=== PATIENT | female | born 1960 | race Caucasian/White ===

== ENCOUNTER → 2016-07-01 | Outpatient (CLI) | payer BC ==
[~2016-07-01] MED LIST: BYSTOLIC5 MG PO; EFFEXOR XR DPS150 MG PO; HABITROL DPS14 MG PO; HYZAAR-100/251 TAB PO; NORCO 5-325 TA1 EACH PO; NORVASC5 MG PO; TYLENOL DPS325 MG PO; ULTRAM DPS50 MG PO; ZOCOR DPS20 MG PO
== END | disposition home or self-care (01) ==
LOC: RAD.S 08:59
DX: R10.13 Epigastric pain (principal); K21.9 Gastro-esophageal reflux disease without esophagitis; K76.0 Fatty (change of) liver, not elsewhere classified; R68.81 Early satiety; K59.03 Drug induced constipation; R14.2 Eructation; M54.6 Pain in thoracic spine; Z72.0 Tobacco use